=== PATIENT | male | born 1970 | race Caucasian/White ===

== ENCOUNTER 2016-12-27 09:36 | Emergency (ER) | payer OTHER, BC ==
[2016-12-27 09:57] VITALS: BP 132/80; PULSE 64; TEMP 98.2; BMI 33.9
--- NOTE | 2016-12-27 10:32 | PDOC ---
Suture Removal/Wound Check HPI - History of Present Illness Chief Complaint: Suture/Staple Removal (other) Stated Complaint: STAPLE/SUTURE REMOVAL Time Seen by Provider: 12/27/16 10:10 History Source: Yes: Patient Exam Limitations: Yes: No Limitations Treated at: Other ED Date of Last ED visit: 12/18/16 - Previous ED Treatment Tetanus Immunization: Yes: Given at last ED visit Past History - Past Medical History Allergies/Adverse Reactions: Allergies No Known Allergies Allergy (Verified 12/27/16 09:57) Home Medications: Ambulatory Orders NK [No Known Home Medication] 12/27/16 - Social History Smoking Status: Current every day smoker Number of Ciarettes Per Day: 10 Medical Decision Making - Medical Decision Making A/P: 46 y/o afebrile male here for staple removal. He states about 10 days ago he sustained a lac to his right distal LE. He went to [facility] where he had 3 iam placed and had a tetanus. He was at his PCP's office today but the tool couldn't get the iam out. He denies fever or bleeding or discharge. 3 iam removed without difficulty. Wound margins remained closed. cleaned with hydrogen peroxide and covered with a bandaid. Pt was instructed to keep the wound clean and dry. The patient verbalizes understanding of all instructions, has no further questions and is awaiting discharge. *DC/Admit/Observation/Transfer Diagnosis at time of Disposition: Encounter for removal of iam - Discharge Dispostion Disposition: HOME Condition at time of disposition: Improved - Referrals Referrals: Chao Lugo MD [Primary Care Provider] - - Patient Instructions Printed Discharge Instructions: DI for Suture Removal Additional Instructions: Discharge Instructions: -Keep wound clean and dry -Return to the ER with any worsening or concerning symptoms
== END 2016-12-27 10:42 | disposition home or self-care (01) ==
LOC: JERFT 09:36
DX: Z48.02 Encounter for removal of sutures (principal)
CPT/HCPCS: 99281-25